=== PATIENT | female | born 1945 | race Caucasian/White ===

== ENCOUNTER 2018-07-13 14:07 | Emergency (ER) | payer OTHER ==
[~2018-07-13] VITALS: Ht 157.5 cm; Wt 56.2 kg
[~2018-07-13 14:07] MED LIST: AMLO5TAB4; FAMO-96; ROSU20TA
[2018-07-13 14:13] VITALS: Ht 157.5 cm; Wt 56.2 kg
[2018-07-13] MEDS ORDERED: DEXT15DR5 OP (17:06)
[2018-07-13] MEDS ORDERED: BENZ-6 PO (17:06)
[2018-07-13] MEDS ORDERED: ACET-141 PO (17:07)
[2018-07-13 17:40] VITALS: BP 160/78; PULSE 90; RESP 20
--- NOTE | 2018-07-29 02:20 | ERD ---
ER Documentation Chief Complaint Chief Complaint seen on 07/13/2018 eye and ear pain, sore throat x 5 days HPI 72-year-old female presents by eye pain, ear pain, sore throat times 5 days. She states she has bilateral eye redness with watery discharge. She states the pain is 5/10. Denies fever, or chills. ROS All systems reviewed and are negative except as per history of present illness. Medications Home Meds Active Scripts Acetaminophen* (Acetaminophen*) 500 MG Extra Strength Tablet, 500 MG PO Q4H PRN for PAIN AND OR ELEVATED TEMP, #30 TAB Prov:MILES PRAJAPATI DO 07/13/18 Dextran 70/Hypromellose (ARTIFICIAL TEARS EYE DROPS) 15 Ml Drops, 1 DROP OP Q4H PRN for EYE IRRITATION for 7 Days, #1 BOTTLE Prov:MILES PRAJAPATI 07/13/18 Benzonatate* (Tessalon Perle*) 100 Mg Capsule, 100 MG PO Q8H PRN for COUGH, #30 CAP Prov:MILES PRAJAPATI 07/13/18 Reported Medications Amlodipine Besylate* (Norvasc*) 5 Mg Tablet 04/28/10 Famotidine* (Pepcid*) 20 Mg Tablet 04/28/10 Rosuvastatin Calcium* (Crestor*) 20 Mg Tablet 04/28/10 Allergies Allergies: Coded Allergies: No Known Allergy (Verified Allergy, Mild, 04/28/10) Uncoded Allergies: NONE (Allergy, Mild, 04/28/10) PMhx/Soc History of Surgery: No Anesthesia Reaction: No Hx Neurological Disorder: No Hx Respiratory Disorders: No Hx Cardiac Disorders: Yes (HTN) Hx Psychiatric Problems: No Hx Miscellaneous Medical Probl: Yes (HIGH CHOLESTEROL) Hx Alcohol Use: No Hx Substance Use: No Hx Tobacco Use: No Smoking Status: Never smoker Physical Exam Vitals Temp 97.2, pulse 103, respiration 18, blood pressure 153/67, O2 saturation 96% on room air Physical Exam Const: No acute distress Head: Atraumatic Eyes: mild bilatera injections, no pus discharge, mild watery drainage noted ENT: Normal External Ears, bilateral tympanic membrane intact without erythema or bulging noted, nose and Mouth examination normal, no tonsillar swelling or exudate noted Neck: Full range of motion. No meningismus. Resp: Clear to auscultation bilaterally, no wheezing, rales, rhonchi Cardio: Regular rate and rhythm, no murmurs Skin: No petechiae or rashes Ext: No cyanosis, or edema Neur: Awake and alert Psych: Normal Mood and Affect Procedures/MDM Medical Decision Making: Differential diagnosis includes but not limited to upper respiratory infection, pneumonia, sepsis, meningitis. Patient appeared well on physical examination, nontoxic appearing. Lungs were clear to auscultation bilaterally. There is low suspicion for pneumonia, sepsis, meningitis. Patient likely has an upper respiratory infection, likely viral. Therefore antibiotics not indicated. Discussed symptomatic treatment with patient's parent who agrees with plan. Regarding bilateral eye redness and pain, examination with a viral conjunctivitis. Patient given prescription for supportive medications. Patient advised to follow up with PCP in 1-2 days. Patient advised to return to ED for new or worsening symptoms. Patient stable on discharge from the ED. Disclaimer: Inadvertent spelling and grammatical errors are likely due to EHR/dictation software use and do not reflect on the overall quality of patient care. Also, please note that the electronic time recorded on this note does not necessarily reflect the actual time of the patient encounter. Departure Diagnosis: Primary Impression: URI (upper respiratory infection) Additional Impression: Conjunctivitis Condition: Fair Patient Instructions: Preventing Common Respiratory Infections, Conjunctivitis, Viral Referrals: [facility], [facility] YOU HAVE RECEIVED A MEDICAL SCREENING EXAM AND THE RESULTS INDICATE THAT YOU DO NOT HAVE A CONDITION THAT REQUIRES URGENT TREATMENT IN THE EMERGENCY DEPARTMENT. FURTHER EVALUATION AND TREATMENT OF YOUR CONDITION CAN WAIT UNTIL YOU ARE SEEN IN YOUR DOCTORS OFFICE WITHIN THE NEXT 1-2 DAYS. IT IS YOUR RESPONSIBILITY TO MAKE AN APPOINTMENT FOR FOLOW-UP CARE. IF YOU HAVE A PRIMARY DOCTOR --you should call your primary doctor and schedule an appointment IF YOU DO NOT HAVE A PRIMARY DOCTOR YOU CAN CALL OUR PHYSICIAN REFERRAL HOTLINE AT IF YOU CAN NOT AFFORD TO SEE A PHYSICIAN YOU CAN CHOSE FROM THE FOLLOWING [facility] [address] [facility] [address] [facility]. [facility] [address] [facility] [address] [facility] [address] [facility]. [facility] [address] Additional Instructions: Llame al doctor MAANA y sabina vickey ADITI PARA DENTRO DE 1-2 CASTRO.Dgale a la secretaria que nosotros le instruimos hacer esta aditi.Avise o llame si jackson condicin se empeora antes de la aditi. Regresa aqui si peor o no mejor. MILES PRAJAPATI DO Jul 29, 2018 02:20
== END 2018-07-13 17:39 | disposition home or self-care (01) ==
LOC: FTE 14:07
DX: H10.9 Unspecified conjunctivitis (principal); J06.9 Acute upper respiratory infection, unspecified; I10 Essential (primary) hypertension
CPT/HCPCS: 87880; 99283